=== PATIENT | male | born 1970 ===

== ENCOUNTER → 2022-07-18 | Outpatient (CLI) | payer OTHER | LOC: EXRD 14:52 | DX: S99.921A Unspecified injury of right foot, initial encounter (principal) | CPT/HCPCS: 73590; 73610; 73630 ==

== ENCOUNTER → 2022-07-23 | Outpatient (CLI) | payer OTHER | LOC: US 14:35 | DX: Z02.6 Encounter for examination for insurance purposes (principal); S89.91XA Unspecified injury of right lower leg, initial encounter; M25.561 Pain in right knee; X58.XXXA Exposure to other specified factors, initial encounter; R93.6 Abnormal findings on diagnostic imaging of limbs | CPT/HCPCS: 73560; 93971 ==